=== PATIENT | male | born 1960 | race Caucasian/White ===

== ENCOUNTER 2021-05-12 18:26 | Emergency (ER) | payer OTHER, SELFPAY ==
[2021-05-12 18:33] VITALS: BP 125/82; PULSE 78; RESP 16; TEMP 36.4; O2SAT 98
--- NOTE | 2021-05-12 18:35 | ED.WOUNDLAC ---
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 Denies any numbness or tingling. Describes the pain as an ache. He has tried no gslo-alf-icabthe treatment prior to arrival. He is allergic to tetanus vaccine. Related Data Home Medications Medication Instructions Recorded Confirmed No Home Medications 05/12/21 05/12/21 Allergies Allergy/AdvReac Type Severity Reaction Status Date / Time venom-honey bee Allergy Intermediate Swelling Verified 05/12/21 18:41 bee venom protein (honey bee) Allergy Unknown Swelling Verified 05/12/21 18:41 tetanus and diphtheria Allergy Unknown Unknown Verified 05/12/21 18:41 toxoids Tetanus Vaccines and Toxoid Allergy Unknown Unknown Unverified 05/12/21 18:41 Review of Systems Review of Systems: CONSTITUTIONAL: Denies body aches, fever, chills, or sweats. EYES: Denies visual changes, redness, or discharge. ENT: Denies rhinorrhea, congestion, sore throat, or otalgia. CARDIOVASCULAR: Denies chest pain, palpitations, or edema. RESPIRATORY: Denies cough or dyspnea. GASTROINTESTINAL: Denies abdominal pain, nausea, vomiting, or diarrhea. GENITOURINARY: Denies dysuria or hematuria. SKIN: Denies rash, itching. + Laceration to left hand MUSCULOSKELETAL: Denies back pain, joint pain, or myalgia. NEUROLOGIC: Denies headache, numbness, tingling, or weakness. PSYCH: Denies depression or anxiety. PMFSH Social History Social History Smoking status: Never smoker Second hand tobacco smoke exposure: No Alcohol intake: current Comments At time of signature, I have reviewed and agree with nursing past medical, surgical, social and family history unless otherwise noted. Please see nursing chart for further information. There is no relevant family history pertinent to the presenting complaint Exam Narrative: GENERAL: Well-appearing, well-nourished, and in no acute distress. HEAD: Normocephalic, atraumatic. EYES: EOMI. No redness or drainage. Conjunctivae normal. ENT: Mucous membranes pink and moist. NECK: Normal AROM. CHEST: No respiratory distress. EXTREMITIES: Left hand: 4.5 cm full-thickness irregular laceration to the lateral second metacarpal/MCP area. No active bleeding. Patient has full range of motion of the second finger against resistance. Distal sensation intact. Capillary refill normal. SKIN: Warm, dry, no rash. Capillary refill normal. Normal skin turgor. NEURO: No focal deficits. Alert and oriented x3. Gait steady. PSYCH: Normal affect. No signs of depression or anxiety. Course Vital Signs Vital signs: Vital Signs Temperature 97.6 F 05/12/21 18:33 Pulse Rate 78 05/12/21 18:33 Respiratory Rate 16 05/12/21 18:33 Blood Pressure 125/82 05/12/21 18:33 Pulse Oximetry 98 05/12/21 18:33 Temperature 97.6 F 05/12/21 18:33 Pulse Rate 78 05/12/21 18:33 Respiratory Rate 16 05/12/21 18:33 Blood Pressure 125/82 05/12/21 18:33 Pulse Oximetry 98 05/12/21 18:33 Reviewed. Pt has been instructed to follow up with his PCP regarding his elevated blood pressure today. Procedures Laceration Laceration 1: Date: 05/12/21 Time: 19:00 Site: hand Side (If applicable): left Size (cm): 4.5 Description: irregular Depth: simple, single layer Local Anesthetic: lidocaine 1% Amount of anesthesia used (mL): 4 Pre-repair: wound explored, irrigated extensively and wound margins revised ====== Skin Level ====== Skin layer closed with: nylon Size (cm):
== END 2021-05-12 19:22 | disposition home or self-care (01) ==
PROVIDERS: Emergency Provider Nurse Practitioner; PCP Internal Medicine
DX: S61.211A Laceration without foreign body of left index finger without damage to nail, initial encounter (principal); W27.8XXA Contact with other nonpowered hand tool, initial encounter
CPT/HCPCS: 12002; 99212; G0463

== ENCOUNTER 2021-05-23 16:32 | Emergency (ER) | payer OTHER, SELFPAY ==
--- NOTE | ~2021-05-23 | XR_ITS ---
EXAMINATION: XR tibia fibula LT 2V INDICATION: Left leg pain and laceration TECHNIQUE: Two views of the left tibia and fibula are obtained. COMPARISON: None available FINDINGS: There is an anterior soft tissue laceration overlying the proximal/mid tibia. There appear to be underlying cortical defects in the anterior tibia. No displaced fracture is identified. Alignme nt at the knee and ankle is normal. IMPRESSION: 1. Anterior soft tissue defect with apparent underlying cortical defects of the anterior tibia, consi stent with open bony injury. Reviewed, dictated and finalized at location A. ER/WELDER IMPRESSION: 1. Anterior soft tissue defect with apparent underlying cortical defects of the anterior tibia, consistent with open bony injury.
[2021-05-23 16:46] VITALS: BP 129/85; PULSE 83; RESP 18; TEMP 36.6; O2SAT 99
[2021-05-23] MEDS: LIDOCAINE, EPINEPHRINE, TETRACAINE VISCOUS SOLN 3 ML TOPICAL (17:28)
[2021-05-23] MEDS: cefTRIAXone 500 MG VIAL IM (17:35)
--- NOTE | 2021-05-23 18:10 | ED.WOUNDLAC ---
HPI - Wound/Laceration General Chief Complaint: Wound/Laceration Stated Complaint: Laceration lt leg Source: patient and RN notes reviewed Limitations: no limitations History of Present Illness HPI narrative: The patient, previously mostly healthy and tetanus up-to-date, presents with chainsaw laceration. Patient states prior to arrival he cut his left leg along his key with a chainsaw, and he then washed in the shower. He complains of only mild pain from a 6 cm ragged, linear almost transverse laceration of his middle key, that has associated 3-4 mm wdith or skin defect. As the skin is thin, it appears to go to the superficial, cortical bone. Discussed plan to consult [facility] [Dr. Gonzáles], provide parenteral/IM antibiotics, wound care/pressure irrigation, and follow orthopedic guidance Related Data Allergies Allergy/AdvReac Type Severity Reaction Status Date / Time venom-honey bee Allergy Intermediate Swelling Verified 05/23/21 16:57 bee venom protein (honey bee) Allergy Unknown Swelling Verified 05/23/21 16:57 tetanus and diphtheria Allergy Unknown Unknown Verified 05/23/21 16:57 toxoids Tetanus Vaccines and Toxoid Allergy Unknown Unknown Verified 05/23/21 16:57 Review of Systems Review of Systems: General/Constitutional: No weight loss,fever Eyes: N0: Redness,discharge Ears/Nose/Throat: No: Epistaxis,ear discharge Respiratory: Denies: Hemoptysis Gastrointestinal: No Vomiting, Bleeding-rectal Skin: No Lumps, eruption Neurologic: No Focal Weakness,Sz Hematologic: Denies: Petechiae/Purpura Psychiatric: No: Suicida ideationl All Other Systems: Reviewed and Negative [facility] Social History Social History Smoking status: Never smoker Second hand tobacco smoke exposure: No Alcohol intake: current Comments At time of signature, agree with nursing past medical, surgical, social and family history. There is no relevant family history pertinent to the presenting complaint Exam Narrative: General Appearance: Well appearing, Conjunctiva clear Ears: External ear normal, Auditory canal normal Nose: Normal nose, Nares clear Mouth/Throat: Normal appearing, Normal lips Neck: Supple Respiratory: Airway patent, No respiratory distress MS-LE: Normal strength (mostly intact, limited flexion/extension by pain), Tenderness (anterior, with min decreased ROM), Scant swelling, Other: distally good sensation, 5/5 strength AT, EHL Skin: Warm, Dry, 6cm ant, transverse subcutaneous key laceration Neurological: A&O x3, Normal affect Course Course Emergency Course: Films visualized, interpreted by radiologist, agree, ABnormal see report Discussed physical and x-ray findings with on-call orthopedist. He suggest prompt follow-up after wound care, loosely approximating the skin defect with a couple or minimal shyam/stitches. Vital Signs Vital signs: Vital Signs Temperature 98 F 05/23/21 16:46 Pulse Rate 83 05/23/21 16:46 Respiratory Rate 18 05/23/21 16:46 Blood Pressure 129/85 05/23/21 16:46 Pulse Oximetry 99 05/23/21 16:46 Temperature 98 F 05/23/21 16:46 Pulse Rate 83 05/23/21 16:46 Respiratory Rate 18 05/23/21 16:46 Blood Pressure 129/85 05/23/21 16:46 Pulse Oximetry 99 05/23/21 16:46 Procedures Laceration Laceration 1: Date: 05/23/21 Site: lower extremity (key ) Side (If applicable): left Size (cm): 6 Description: irregular Depth: involves muscle layer Local Anesthetic: other anesthetic (LET) Amount of anesthesia used (mL): 2 Pre-repair: irrigated extensively ====== Skin Level ====== Skin layer closed with: shyam Number of sutures: 2 ====== Subcutaneous Layer ====== ====== Muscle Layer ====== ====== Tendon Layer ====== Discharge Plan Discharge Clinical Impression: Abnormal x-ray of bone
== END 2021-05-23 18:32 | disposition home or self-care (01) ==
PROVIDERS: Emergency Provider Emergency Medicine; PCP Internal Medicine
DX: S81.812A Laceration without foreign body, left lower leg, initial encounter (principal); W29.3XXA Contact with powered garden and outdoor hand tools and machinery, initial encounter; Z23 Encounter for immunization
CPT/HCPCS: 12002; 73590; 90471; 99213; G0463; J0696